=== PATIENT | male | born 1955 | race Caucasian/White ===

== ENCOUNTER 2018-01-20 01:20 | Emergency (ER) | payer BC ==
[~2018-01-20] VITALS: Ht 172.7 cm; Wt 79.0 kg
[2018-01-20 01:23] VITALS: BP 160/102
== END 2018-01-20 02:25 | disposition home or self-care (01) ==
LOC: ER 01:21
DX: M23.92 Unspecified internal derangement of left knee (principal); M25.462 Effusion, left knee; I10 Essential (primary) hypertension; Z86.73 Personal history of transient ischemic attack (TIA), and cerebral infarction without residual deficits; Z88.2 Allergy status to sulfonamides; W01.0XXA Fall on same level from slipping, tripping and stumbling without subsequent striking against object, initial encounter; Y93.89 Activity, other specified; Y92.89 Other specified places as the place of occurrence of the external cause; Y99.8 Other external cause status
CPT/HCPCS: 20610; 99284; A6449